=== PATIENT | female | born 1975 | race Two or more races ===

== ENCOUNTER 2017-05-13 13:13 | Emergency (ER) | payer MEDICAID, OTHER ==
[~2017-05-13] VITALS: Ht 157.5 cm; Wt 88.0 kg
[2017-05-13 13:46] VITALS: BP 139/94
[2017-05-13] MEDS ORDERED: PHENAZOPYRIDINE HCL 100 MG TAB PO ONE (14:15)
== END 2017-05-13 14:22 | disposition home or self-care (01) ==
LOC: ER 13:13
DX: N39.0 Urinary tract infection, site not specified (principal)

== ENCOUNTER 2017-11-01 18:39 | Emergency (ER) | payer MEDICAID ==
[~2017-11-01] VITALS: Ht 157.5 cm; Wt 90.3 kg
[2017-11-01 20:05] VITALS: BP 122/84
[2017-11-02] MEDS ORDERED: methylPREDNISolone SOD SUCC 125 MG/2 ML VL IM ONE
== END 2017-11-02 00:05 | disposition home or self-care (01) ==
LOC: ER 18:39
DX: J03.90 Acute tonsillitis, unspecified (principal)
CPT/HCPCS: 71045; 96372; 99283; J2930

== ENCOUNTER 2021-05-15 12:48 | Emergency (ER) | payer MEDICAID, OTHER ==
[~2021-05-15] VITALS: Ht 157.5 cm; Wt 88.5 kg
[2021-05-15 13:30] LABS: Urine Bacteria FEW /hpf (None Seen); Urine Blood Negative /uL (Negative); Urine Mucus FEW (None Seen); Urine Specific Gravity 1.026 (1.001-1.035); Urine WBC 3 /hpf (0 - 5)
[2021-05-15 14:09] VITALS: BP 129/81
== END 2021-05-15 14:41 | disposition home or self-care (01) ==
LOC: ER 12:48
DX: N39.0 Urinary tract infection, site not specified (principal)
CPT/HCPCS: 81001

== ENCOUNTER 2021-10-10 10:22 | Emergency (ER) | payer OTHER ==
[~2021-10-10] VITALS: Ht 157.5 cm; Wt 88.5 kg
[2021-10-10 11:03] VITALS: BP 139/68
[2021-10-10] MEDS ORDERED: IBUP800T27 PO (11:10)
[2021-10-10] MEDS ORDERED: PRED20TA2 PO (11:10)
== END 2021-10-10 11:28 | disposition home or self-care (01) ==
LOC: ER 10:22
DX: G56.02 Carpal tunnel syndrome, left upper limb (principal); Z79.1 Long term (current) use of non-steroidal anti-inflammatories (NSAID); Z79.899 Other long term (current) drug therapy

== ENCOUNTER 2023-08-01 15:29 | Emergency (ER) | payer MEDICAID ==
[~2023-08-01] VITALS: Ht 157.5 cm; Wt 93.8 kg
[~2023-08-01 15:29] MED LIST: IBUP-1456 PO; PRED20TA2 PO
[2023-08-01 15:46] VITALS: BP 123/84; PULSE 108; RESP 18; O2SAT 97
== END 2023-08-01 21:08 | disposition left against medical advice (07) ==
LOC: ER 15:29
DX: J02.9 Acute pharyngitis, unspecified (principal); Z53.21 Procedure and treatment not carried out due to patient leaving prior to being seen by health care provider

== ENCOUNTER 2023-08-07 10:18 | Emergency (ER) | payer MEDICAID ==
[~2023-08-07] VITALS: Ht 157.5 cm; Wt 92.9 kg
[2023-08-07] MEDS ORDERED: LIDOCAINE 1% HCL (LOCAL ANESTH.) INJ 20ML MDV IJ ONE (12:45)
[2023-08-07] MEDS ORDERED: KETOROLAC TROMETH 30 MG/ML 1ML VIAL IV ONE (13:15)
[2023-08-07] MEDS ORDERED: methylPREDNISolone SOD SUCC 125 MG/2 ML VL IV ONE (13:15)
[2023-08-07] MEDS ORDERED: methylPREDNISolone SOD SUCC 125 MG/2 ML VL ONE (13:15)
[2023-08-07] MEDS ORDERED: SODIUM CHLORIDE 0.9% 1,000 ML IV ONE (13:15)
[2023-08-07] MEDS ORDERED: cefTRIAXone 1GM/50ML D5W 50 ML IV ONE ×3 (13:15)
[2023-08-07] MEDS ORDERED: KETOROLAC TROMETH 30 MG/ML 1ML VIAL ONE (13:15)
[2023-08-07] MEDS ORDERED: CLIN300C70 PO (13:56)
[2023-08-07] MEDS ORDERED: LIDO2SOL26 MT ×2 (13:56)
[2023-08-07] MEDS ORDERED: IBUP-1456 PO (14:24)
[2023-08-07 14:26] VITALS: BP 124/95; PULSE 80; RESP 16; TEMP 98; O2SAT 98
== END 2023-08-07 14:28 | disposition home or self-care (01) ==
LOC: ER 10:18
DX: J36 Peritonsillar abscess (principal); Z79.899 Other long term (current) drug therapy
CPT/HCPCS: 42700; 96365; 96375; 99284; J0696; J1885; J2930

== ENCOUNTER 2023-09-13 13:36 | Emergency (ER) | payer MEDICAID ==
[~2023-09-13] VITALS: Ht 160 cm; Wt 94.0 kg
[~2023-09-13 13:36] MED LIST changes: +CLIN300C70 PO
[2023-09-13 14:53] VITALS: BP 119/86; PULSE 107; RESP 18; TEMP 97.4; O2SAT 96
[2023-09-13] MEDS ORDERED: KETOROLAC TROMETH 30 MG/ML 1ML VIAL IM ONE (15:30)
== END 2023-09-13 16:16 | disposition home or self-care (01) ==
LOC: ER 13:36
DX: M77.12 Lateral epicondylitis, left elbow (principal); Z79.899 Other long term (current) drug therapy
CPT/HCPCS: 73070; 96372; 99283; J1885

== ENCOUNTER 2024-02-15 16:24 | Emergency (ER) | payer MEDICAID ==
[~2024-02-15] VITALS: Ht 162.6 cm; Wt 93.4 kg
[~2024-02-15 16:24] MED LIST changes: +CLIN1CAP70 PO; -CLIN300C70 PO
[2024-02-15 16:40] VITALS: BP 145/96; PULSE 88; RESP 20; O2SAT 96
[2024-02-15] MEDS ORDERED: AMOX875T4 PO (20:18)
[2024-02-15] MEDS ORDERED: ACET500T58 PO (20:18)
== END 2024-02-15 20:29 | disposition home or self-care (01) ==
LOC: ER 16:24
DX: J03.90 Acute tonsillitis, unspecified (principal); H66.92 Otitis media, unspecified, left ear; F17.210 Nicotine dependence, cigarettes, uncomplicated; Z79.1 Long term (current) use of non-steroidal anti-inflammatories (NSAID); Z79.52 Long term (current) use of systemic steroids; Z90.49 Acquired absence of other specified parts of digestive tract

== ENCOUNTER 2024-04-13 14:50 | Emergency (ER) | payer MEDICAID ==
[~2024-04-13] VITALS: Ht 157.5 cm; Wt 95.0 kg
[~2024-04-13 14:50] MED LIST changes: +ACET500T58 PO; +AMOX875T4 PO
[2024-04-13 16:43] VITALS: BP 135/88; PULSE 90; RESP 18; TEMP 99.1; O2SAT 97
[2024-04-13] MEDS: cefTRIAXone SOD 1,000 MG VL IM ONE (17:04)
[2024-04-13] MEDS: methylPREDNISolone SOD SUCC 125 MG/2 ML VL IM ONE (17:05)
[2024-04-13] MEDS ORDERED: CLIN1CAP70 PO (17:23)
== END 2024-04-13 17:27 | disposition home or self-care (01) ==
LOC: ER 14:50
DX: J03.90 Acute tonsillitis, unspecified (principal); H66.92 Otitis media, unspecified, left ear; F17.210 Nicotine dependence, cigarettes, uncomplicated; Z98.890 Other specified postprocedural states; Z79.899 Other long term (current) drug therapy
CPT/HCPCS: 96372; 99284; J0696; J2919

== ENCOUNTER 2024-04-15 06:50 | Inpatient (IN) | payer MEDICAID ==
[~2024-04-15] VITALS: Ht 157.5 cm; Wt 96.7 kg
[2024-04-15 07:38] LABS: Basophils # (auto) 0.1 10 ^3/uL (0-0.2); Basophils % (auto) 0.4 % (0.0-2.0); Eosinophils # (auto) 0.1 10 ^3/uL (0-0.8); Eosinophils % (auto) 0.8 % (0.0-7.0); Hematocrit 40.9 % (36.0-46.0); Hemoglobin 13.6 g/dL (12.2-16.2); Lymphocytes % (auto) 13.9 % (10.0-50.0); Mean Corpuscular Hemoglobin 29.6 pg (28.0-32.0); Mean Corpuscular Hgb Conc. 33.2 g/dL (32.0-36.0); Mean Corpuscular Volume 89.1 fL (80.0-100.0); Monocytes # (auto) 0.9 10 ^3/uL (0-1.3); Monocytes % (auto) 6.5 % (0.0-12.0); Neutrophils # (auto) 11.4 10 ^3/uL (1.6-8.6); Neutrophils % (auto) 78.4 % (37.0-80.0); Nucleated Red Blood Cells % 0.1 %; Platelet Count (auto) 422 10^3/uL (140-450); Red Blood Cells 4.59 10^6/uL (4.0-5.20); Red Cell Distribution Width 15.6 % (11.8-14.3); White Blood Cell 14.5 10^3/uL (4.4-10.8)
[2024-04-15 08:16] VITALS: PULSE 81; RESP 17; O2SAT 97
[2024-04-15 08:36] LABS: Urine Bacteria FEW /hpf (None Seen); Urine Blood Negative /uL (Negative); Urine Budding Yeast OCCASIONAL /hpf (None Seen); Urine Clarity Turbid (Clear); Urine Color Yellow (Yellow); Urine Mucus FEW (None Seen); Urine Protein, UAD 1+ (Negative); Urine Specific Gravity 1.046 (1.001-1.035); Urine Urobilinogen Normal (Negative); Urine WBC 5 /hpf (0 - 5)
[2024-04-15 08:57] LABS: Chloride 105 mmol/L (98-107); Potassium 3.8 mmol/L (3.5-5.1); Sodium 137 mmol/L (136-145)
[2024-04-15 08:58] LABS: Anion Gap 6 (5-15); Carbon Dioxide 26 mmol/L (20-30)
[2024-04-15 08:59] LABS: Calcium 8.5 mg/dL (8.7-10.4)
[2024-04-15 09:03] LABS: Blood Urea Nitrogen 10 mg/dL (9-23); Glucose 115 mg/dL (74-106)
[2024-04-15 09:04] LABS: Lipase 34 U/L (12-53)
[2024-04-15] MEDS: SODIUM CHLORIDE 0.9% 1,000 ML IV ONE ×2 (09:06→11:34)
[2024-04-15 09:07] LABS: COVID19 ANTIGEN SOFIA FIA POSITIVE (NEGATIVE)
[2024-04-15] MEDS: cefTRIAXone 1GM/50ML D5W 50 ML IV ONE (09:08)
[2024-04-15 09:26] LABS: BUN/Creatinine Ratio 14.7 (10.0-20.0)
[2024-04-15] MEDS ORDERED: ACETAMINOPHEN 325 MG TAB PO PRN (12:00)
[2024-04-15] MEDS ORDERED: ONDANSETRON HCL 4 MG/2 ML VIAL IV PRN (12:00)
[2024-04-15] MEDS ORDERED: DOCUSATE SOD 100 MG CAP PO PRN (12:00)
[2024-04-15] MEDS: HYDROcodone-ACET 5/325MG TAB PO PRN (12:39)
[2024-04-15] MEDS: SODIUM CHLOR 0.9% PF (SALINE LOCK) 10ML VIAL/SYR IV SCH (14:10)
[2024-04-15 17:13] VITALS: BP 131/81; PULSE 106; RESP 19; TEMP 98.8; O2SAT 97
[2024-04-15 17:28] VITALS: BP 131/81; PULSE 106; RESP 19; TEMP 98.8; O2SAT 97
[2024-04-15] MEDS ORDERED: CLIN1CAP70 PO (17:51)
[2024-04-15] MEDS ORDERED: IBUP-1455 PO (17:51)
[2024-04-15] MEDS: HYDROmorphone HCL 2 MG/ML VL/or syr IV PRN (17:57)
[2024-04-15] MEDS ORDERED: guaiFENesin-DM 100/10mg/5ml SYR PO PRN (18:00)
[2024-04-15] MEDS ORDERED: FLUTICASONE PROP NASAL SPR 0.05 % (50MCG) 16GM EACHNOSTRI PRN (20:15)
[2024-04-15] MEDS: IBUPROFEN 800 MG TAB PO ONE (20:27)
[2024-04-15 21:00] VITALS: BP 117/70; PULSE 101; RESP 19; TEMP 98.3; O2SAT 97
[2024-04-16 01:00] VITALS: BP 128/90; PULSE 92; RESP 20; TEMP 98.3; O2SAT 98
[2024-04-16 03:37] LABS: Urine Bacteria None Seen /hpf (None Seen)
[2024-04-16 03:43] LABS: Urine Blood Negative /uL (Negative); Urine Clarity Clear (Clear); Urine Color Colorless (Yellow); Urine Protein, UAD Negative (Negative); Urine Urobilinogen Normal (Negative); Urine WBC 2 /hpf (0 - 5)
[2024-04-16 05:00] VITALS: BP 111/70; PULSE 86; RESP 16; TEMP 98.6; O2SAT 95
[2024-04-16 05:45] LABS: Basophils # (auto) 0.1 10 ^3/uL (0-0.2); Basophils % (auto) 0.5 % (0.0-2.0); Eosinophils # (auto) 0.1 10 ^3/uL (0-0.8); Eosinophils % (auto) 0.6 % (0.0-7.0); Hemoglobin 13.7 g/dL (12.2-16.2); Lymphocytes # (auto) 2.4 10 ^3/uL (0.4-5.4); Lymphocytes % (auto) 19.4 % (10.0-50.0); Mean Corpuscular Hemoglobin 29.4 pg (28.0-32.0); Mean Corpuscular Hgb Conc. 33.4 g/dL (32.0-36.0); Mean Corpuscular Volume 88.1 fL (80.0-100.0); Monocytes # (auto) 1.3 10 ^3/uL (0-1.3); Monocytes % (auto) 10.3 % (0.0-12.0); Neutrophils # (auto) 8.5 10 ^3/uL (1.6-8.6); Neutrophils % (auto) 69.2 % (37.0-80.0); Nucleated Red Blood Cells % 0.1 %; Platelet Count (auto) 438 10^3/uL (140-450); Red Blood Cells 4.65 10^6/uL (4.0-5.20); Red Cell Distribution Width 15.6 % (11.8-14.3); White Blood Cell 12.3 10^3/uL (4.4-10.8)
[2024-04-16 06:09] LABS: Alanine Aminotransferase 24 U/L (7-40); Albumin 4.3 g/dL (3.2-4.8); Alkaline Phosphatase 134 U/L (46-116); Anion Gap 6 (5-15); Aspartate Aminotransferase 25 U/L (13-40); BUN/Creatinine Ratio 9.8 (10.0-20.0); Bilirubin, Total 0.3 mg/dL (0.2-1.0); Blood Urea Nitrogen 6 mg/dL (9-23); Calcium 8.8 mg/dL (8.7-10.4); Carbon Dioxide 27 mmol/L (20-30); Chloride 102 mmol/L (98-107); Glucose 108 mg/dL (74-106); Potassium 4.1 mmol/L (3.5-5.1); Sodium 135 mmol/L (136-145); Total Protein 7.2 g/dL (5.7-8.2)
[2024-04-16 08:00] VITALS: PULSE 86; RESP 24; O2SAT 98
[2024-04-16] MEDS: cefTRIAXone 1GM/50ML D5W 50 ML IV SCH (08:53)
[2024-04-16] MEDS: ENOXAPARIN SOD 40 MG/0.4 ML SYRINGE SC SCH (08:53)
[2024-04-16 09:00] VITALS: BP 123/87; PULSE 86; RESP 24; TEMP 98.2; O2SAT 98
[2024-04-16] MEDS ORDERED: POLYETHYLENE GLYCOL 17 GM PWDR PO PRN (11:00)
[2024-04-16] MEDS ORDERED: IBUPROFEN 400 MG TAB PO PRN ×2 (11:00→12:30)
[2024-04-16] MEDS: IBUPROFEN 400 MG TAB PO PRN (11:54)
[2024-04-16] MEDS: THROAT LOZENGES(CEPASTAT) MT PRN (11:54)
[2024-04-16] MEDS: LACTULOSE 20Gm/30ML SOLN PO STA (11:54)
[2024-04-16] MEDS: FLUTICASONE PROP NASAL SPR 0.05 % (50MCG) 16GM EACHNOSTRI ONE (12:15)
[2024-04-16 13:00] VITALS: BP 134/89; PULSE 109; RESP 24; TEMP 98.9; O2SAT 97
[2024-04-16] MEDS ORDERED: CHOL1CAP47 PO (14:53)
[2024-04-16] MEDS ORDERED: AZITTAB PO (14:53)
[2024-04-16] MEDS ORDERED: ASCO500T11 PO (14:53)
[2024-04-16] MEDS ORDERED: ZINC220C10 PO (14:53)
[2024-04-16 15:26] VITALS: BP 134/89; PULSE 109; RESP 24; TEMP 98.8; O2SAT 97
[2024-04-16] MEDS ORDERED: AMOXICILLIN/CLAVUL 875 MG TAB PO SCH (22:00)
[2024-04-17] MEDS ORDERED: LACTULOSE 20Gm/30ML SOLN PO PRN (10:00)
== END 2024-04-16 16:40 | disposition home or self-care (01) | DRG 254 ==
LOC: ER 06:50 → EAST 12:03 → OVERFLOW 12:03 → EAST 17:06
PROVIDERS: ADMIT Internal Medicine; ATTEND Internal Medicine
DX: K59.00 Constipation, unspecified (principal); U07.1 COVID-19; D72.829 Elevated white blood cell count, unspecified; J03.90 Acute tonsillitis, unspecified; J35.01 Chronic tonsillitis; E66.9 Obesity, unspecified; F17.210 Nicotine dependence, cigarettes, uncomplicated; Z79.1 Long term (current) use of non-steroidal anti-inflammatories (NSAID); Z79.899 Other long term (current) drug therapy; Z90.49 Acquired absence of other specified parts of digestive tract; Z68.39 Body mass index [BMI] 39.0-39.9, adult
CPT/HCPCS: 36415; 71045; 74176; 80048; 80053; 81001; 83690; 85025; 87086; 87426; 96365; G0378

== ENCOUNTER 2024-10-17 13:51 | Emergency (ER) | payer MEDICAID ==
[~2024-10-17] VITALS: Ht 154.9 cm; Wt 91.9 kg
[~2024-10-17 13:51] MED LIST changes: -ACET500T58 PO; -AMOX875T4 PO; +ASCO500T11 PO; +AZITTAB PO; +CHOL1CAP47 PO; -CLIN1CAP70 PO; +IBUP-1455 PO; -IBUP-1456 PO; -PRED20TA2 PO; +ZINC220C10 PO
--- NOTE | 2024-10-17 14:20 | ECG ---
[facility] Test Date: 2024-10-17 Test Time: 14:15:01 Pat Name: LYNNE DANIELS Department: ER Room: Gender: F Unit [employer] Manager: YU : 1975 Requested By: EMERGENCY EMERGENCY Order Number: [id number] Reading MD: Measurements Intervals [place] Rate: 82 P: 64 AL: 122 QRS: 79 QRSD: 94 T: 46 QT: 378 QTc: 442 Interpretive Statements Sinus rhythm Consider right atrial enlargement Minimal ST depression, diffuse leads Please click the below link to view image of tracing.
[2024-10-17 15:16] LABS: Basophils # (auto) 0.1 10 ^3/uL (0-0.2); Monocytes # (auto) 0.6 10 ^3/uL (0-1.3); White Blood Cell 9.6 10^3/uL (4.4-10.8)
--- NOTE | 2024-10-17 15:19 | ED.PDOC ---
SOB-HPI HPI Comments 49 year old female presents to the ED with a chief complaint of shortness of breath onset yesterday (10/16/2024). Patient states she was helping her son move, states it was possible she was exposed to "fiber glass." She was in bed when she began experiencing shortness of breath, with a burning sensation on her chest. Denies any PMHx as well as cough, congestion, headache, dizziness. No other symptoms or modifying factors present at this time. 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 Family History Family History: Unknown Social History Smoker: Cigarettes, Less Than 1 Pack/Day Alcohol: Denies ETOH Use Drugs: Denies Drug Use Lives In: Home Constitutional: denies: chills, diaphoresis, fatigue, fever, malaise, sweats, weakness, others EENTM: denies: blurred vision, double vision, ear bleeding, ear discharge, ear drainage, ear pain, ear ringing, eye pain, eye redness, hearing loss, mouth pain, mouth swelling, nasal discharge, nose bleeding, nose congestion, nose pain, photophobia, tearing, throat pain, throat swelling, voice changes, others Respiratory: reports: shortness of breath; denies: cough, hemoptysis, orthopnea, SOB at rest, SOB with excertion, stridor, wheezing, others Cardiovascular: reports: others (chest discomfort, burning sensaiton); denies: chest pain, dizzy spells, diaphoresis, Dyspnea on exertion, edema, irregular heart beat, left arm pain, lightheadedness, palpitations, PND, syncope Gastrointestinal: denies: abdomen distended, abdominal pain, blood streaked bowels, constipated, diarrhea, dysphagia, difficulty swallowing, hematemesis, melena, nausea, poor appetite, poor fluid intake, rectal bleeding, rectal pain, vomiting, others Genitourinary: denies: abnormal vagina bleeding, burning, dyspareunia, dysuria, flank pain, frequency, hematuria, incontinence, pain, , vagina discharge, urgency, others Neurological: denies: dizziness, fainting, headache, left sided numbness, left sided weakness, numbness, paresthesia, pre-existing deficit, right sided numbness, right sided weakness, seizure, speech problems, tingling, tremors, weakness, others Musculoskeletal: denies: back pain, gout, joint pain, joint swelling, muscle pain, muscle stiffness, neck pain, others Integumetry: denies: bruises, change in color, change in hair/nails, dryness, laceration, lesions, lumps, rash, wounds, others Allergic/Immunocompromised: denies: Difficulty Healing, Frequent Infections, Hives, Itching, others Hematologic/Lymphatic: denies: anemia, blood clots, easy bleeding, easy bruising, swollen glands, others Endocrine: denies: excessive hunger, excessive sweating, excessive thirst, excessive urination, flushing, intolerance to cold, intolerance to heat, unexplained weight gain, unexplained weight loss, others Psychiatric: denies: anxiety, bipolar disorder, depression, hopeless, panic disorder, schizophrenia, sleepless, suicidal, others All Other Systems: Reviewed and Negative Physical Exam General Appearance: No Apparent Distress, Normal HEENT: Normal ENT Inspection, Pharynx Normal, TMs Normal Neck: Full Range of Motion, Non-Tender, Normal, Normal Inspection Respiratory: Chest Non-Tender, Lungs Clear, No Accessory Muscle Use, No Respiratory Distress, Normal Breath Sounds Cardiovascular: No Edema, No JVD, No Murmur, No Gallop, Normal Peripheral Pulses, Regular Rate/Rhythm Breast Exam: Deferred Gastrointestinal: No Organomegaly, Non Tender, No Pulsatile Mass, Normal Bowel Sounds, Soft Genitalia: Deferred Pelvic: Deferred Rectal: Deferred Extremities: No calf tenderness, Normal capillary refill, Normal inspection, Normal range of motion, Non-tender, No pedal edema Musculoskeletal : Apperance: Normal Neurologic: Alert, keel press operator II-XII nml as Tested, No Motor Deficits, Normal Affect, Normal Mood, No Sensory Deficits Cerebellar Function: Normal Reflexes: Normal Skin: Dry, Normal Color, Warm Lymphatic: No Adenopathy Was a procedure done? Was a procedure done?: No Differential Dx Differential Diagnosis: Asthma, CHF, Pneumonia, URI X-Ray, Labs, Meds, VS Vital Signs Date Time Temp Pulse Resp B/P (MAP) Pulse Ox O2 Delivery O2 Flow Rate FiO2 10/17/24 14:42 97.7 93 16 129/76 (93) 96 10/17/24 14:15 82 Lab Test 10/17/24 16:07 10/17/24 14:52 Range/Units Troponin I High Sensitivity < 3 L < 3 L </=34 ng/L White Blood Count 9.6 4.4-10.8 10^3/uL Red Blood Count 4.98 4.0-5.20 10^6/uL Hemoglobin 13.9 12.2-16.2 g/dL Hematocrit 42.3 36.0-46.0 % Mean Corpuscular Volume 85.0 80.0-100.0 fL Mean Corpuscular Hemoglobin 27.9 L 28.0-32.0 pg Mean Corpuscular Hemoglobin Concent 32.9 32.0-36.0 g/dL Red Cell Distribution Width 16.0 H 11.8-14.3 % Platelet Count 496 H 140-450 10^3/uL Mean Platelet Volume 7.2 6.9-10.8 fL Neutrophils (%) (Auto) 68.8 37.0-80.0 % Lymphocytes (%) (Auto) 22.0 10.0-50.0 % Monocytes (%) (Auto) 6.4 0.0-12.0 % Eosinophils (%) (Auto) 1.9 0.0-7.0 % Basophils (%) (Auto) 0.9 0.0-2.0 % Neutrophils # (Auto) 6.6 1.6-8.6 10 ^3/uL Lymphocytes # (Auto) 2.1 0.4-5.4 10 ^3/uL Monocytes # (Auto) 0.6 0-1.3 10 ^3/uL Eosinophils # (Auto) 0.2 0-0.8 10 ^3/uL Basophils # (Auto) 0.1 0-0.2 10 ^3/uL Nucleated Red Blood Cells 0.1 % Sodium Level 136 136-145 mmol/L Potassium Level 4.7 3.5-5.1 mmol/L Chloride Level 102 98-107 mmol/L Carbon Dioxide Level 28 20-31 mmol/L Anion Gap 6 5-15 Blood Urea Nitrogen 13 9-23 mg/dL Creatinine 0.71 0.550-1.02 mg/dL Glomerular Filtration Rate Calc 104 >90 mL/min BUN/Creatinine Ratio 18.3 10.0-20.0 Serum Glucose 104 74-106 mg/dL Calcium Level 9.8 8.7-10.4 mg/dL B-Type Natriuretic Peptide 32.02 0-100 pg/mL [place] [address] Ph: [phone] DIAGNOSTIC IMAGING Diagnostic Imaging Report : [id number] Signed PATIENT: LYNNE DANIELS ACCT: [id number] UNIT: [id number] : 1975 LOC: ER ROOM / BED: / AGE / SEX: 49 / F ADM STATUS: REG ER SERVICE 1431 ORDERING PHYSICIAN: HITESH BANKS MD PROCEDURE(s): CXR2 - CHEST TWO VIEWS ROUTINE REASON: sob ORDER NUMBER(s): [id number], ACCESSION NUMBER(s): [id number] CHEST RADIOGRAPH Indication: sob Technique: Single frontal view of the chest was obtained Comparison: 04/15/2024 FINDINGS: Lines and Tubes: None Lungs: No focal consolidation. Pleura: No effusion.No pneumothorax. Cardiomediastinal contours: Unremarkable Pulmonary vasculature: Within normal limits. Bones: No acute osseous abnormality. IMPRESSION: 1. No acute cardiopulmonary disease. HS:Y ATED BY: PEEWEE CODY MD DICTATED DATE/TIME: 10/17/241515 SIGNED BY: PEEWEE CODY MD SIGNED DATE/TIME: 10/17/241515 CC: Time of 1ST Reevaluation: 15:28 Reevaluation 1ST: Unchanged Patient Education/Counseling: Diagnosis, Treatment, Prognosis Family Education/Counseling: No Family Present Additional Information The following tests were ordered, and results were reviewed by me: EKG, BMP, CBC, TROP -x3, XY CHEST 2 VIEWS, BNP I reviewed and agreed with the following test results read by other providers: XY CHEST 2 VIEWS, I discussed treatment and results with medical personnel and: patient Departure 1 Departure Time of Disposition: 17:25 (Patient's workup is benign. Chest x-ray and labs are benign. We will discharge patient with outpatient follow up) Impression: Primary Impression: Shortness of breath Disposition: HOME / SELF CARE / HOMELESS Condition: Stable Additional Instructions: Your workup today was benign including negative labs and x-rays. You can take Tylenol or Motrin as needed for pain. You should follow up with your regular doctor within 1 week. You should stay well rested and well hydrated. If your symptoms worsen or you have any other concerns please return to the emergency room. Discharged With: Self Critical Care Note Critical Care Time?: No Stability Stability form required: No Heart Score Heart Score: Heart Score Response (Comments) Value History Slightly Suspicious 0 EKG Normal 0 Age <45 0 Risk Factors No known risk factors 0 Troponin Normal limit 0 Total 0 I personally scribed for HITESH BANKS MD ([email or web address]) on 10/17/24 at 15:19. Electronically submitted by Kimberly Carrasquillo ([email or web address]). I personally scribed for HITESH BANKS MD ([email or web address]) on 10/17/24 at 15:31. Electronically submitted by Kimberly Carrasquillo ([email or web address]). HITESH BANKS MD Oct 17, 2024 15:19
[2024-10-17 15:20] LABS: Basophils % (auto) 0.9 % (0.0-2.0); Eosinophils # (auto) 0.2 10 ^3/uL (0-0.8); Eosinophils % (auto) 1.9 % (0.0-7.0); Hematocrit 42.3 % (36.0-46.0); Hemoglobin 13.9 g/dL (12.2-16.2); Lymphocytes # (auto) 2.1 10 ^3/uL (0.4-5.4); Mean Corpuscular Hemoglobin 27.9 pg (28.0-32.0); Mean Corpuscular Hgb Conc. 32.9 g/dL (32.0-36.0); Monocytes % (auto) 6.4 % (0.0-12.0); Neutrophils # (auto) 6.6 10 ^3/uL (1.6-8.6); Neutrophils % (auto) 68.8 % (37.0-80.0); Nucleated Red Blood Cells % 0.1 %; Platelet Count (auto) 496 10^3/uL (140-450); Red Blood Cells 4.98 10^6/uL (4.0-5.20)
[2024-10-17 15:30] LABS: Chloride 102 mmol/L (98-107); Potassium 4.7 mmol/L (3.5-5.1); Sodium 136 mmol/L (136-145)
[2024-10-17 15:32] LABS: Anion Gap 6 (5-15); Calcium 9.8 mg/dL (8.7-10.4); Carbon Dioxide 28 mmol/L (20-31)
[2024-10-17 15:37] LABS: BUN/Creatinine Ratio 18.3 (10.0-20.0); Blood Urea Nitrogen 13 mg/dL (9-23); Glucose 104 mg/dL (74-106)
[2024-10-17 18:05] LABS: Urine Bacteria None Seen /hpf (None Seen)
[2024-10-17 18:10] VITALS: BP 121/65; PULSE 91; RESP 16; TEMP 98.5; O2SAT 97
[2024-10-17 18:49] LABS: Urine Blood Negative /uL (Negative); Urine Clarity Clear (Clear); Urine Color Light-Yellow (Yellow); Urine Protein, UAD Negative (Negative); Urine Specific Gravity 1.021 (1.001-1.035); Urine Squamous Epithelial Cell FEW /hpf (<5); Urine Urobilinogen Normal (Negative); Urine pH 7.5 (5.0-9.0)
[2024-10-18] MEDS ORDERED: OSEL75CA5 PO (19:00)
== END 2024-10-17 18:10 | disposition home or self-care (01) ==
LOC: ER 13:51
DX: R06.02 Shortness of breath (principal); F17.210 Nicotine dependence, cigarettes, uncomplicated; Z90.49 Acquired absence of other specified parts of digestive tract
CPT/HCPCS: 36415; 71046; 80048; 81001; 83880; 84484; 85025; 93005

== ENCOUNTER 2024-10-18 16:04 | Emergency (ER) | payer MEDICAID ==
[~2024-10-18] VITALS: Ht 154.9 cm; Wt 91.9 kg
--- NOTE | 2024-10-18 16:40 | ED.PDOC ---
SOB-HPI HPI Comments HPI: 49 year old female presents to the ED with chief complaint of flu-like symptoms. Patient reports that she has been experiencing a cough with associated fever of 102.9 yesterday, nasal congestion, and headache for the past 2 days. Patient relays that she was [facility] for the same symptoms, but did not receive any treatment or swabs. Patient states she has been taking Tylenol at home. Patient denies any N/V/D, abdominal pain, SOB, chest pain, dizziness, or chills. Initial Vital Signs: Temp : 97.4F BP: 111/76 HR: 113 RR: 18 SpO2: 98% Past Medical History: Denies Past Surgical History: Cholecystectomy Social History: Smokes cigarettes and vapes. Denies ETOH or drug use. Medications: No medications. Allergies: NKDA HPI: Poor Historian. Past Medical History: Past Surgical History: REVIEW OF SYSTEMS: CONSTITUTIONAL: Denies acute: diaphoresis, chills, HEAD: Denies acute: photophobia Eyes: Denies acute: Double vision, vision loss, eye pain, eye discharge. EARS: Denies acute: tinnitus, hearing loss, ear discharge, ear pain, THROAT: Denies acute: sore throat, swelling, difficulty swallowing , pain with swallowing, change in voice. NECK: Denies acute: neck pain, neck swelling, stiff neck. HEART: Denies acute : chest pain, palpitations, LUNGS: Denies acute: SOB, wheezing, hemoptysis ABDOMEN: Denies acute: abdominal pain, Nausea, Vomiting, diarrhea, melena , hematemesis, hematochezia SKIN: Denies acute: rash, redness, lesions, itchiness. EXTREMITIES: Denies acute: calf pain, numbness, tingling, weakness, denies pain in extremity. Denies acute: Low back pain. Neuro: Denies acute: focal neurological deficit, motor or sensory focal neurological deficit, tremors, seizure like activity, confusion, dizziness, change in mental status, loss of bowel or bladder function, cauda equina like symptoms. : Denies acute: dysuria, hematuria, flank pain, increase in urinary frequency. PSYCH: Denies acute: hallucination, suicidal ideation, homicidal ideation. FEMALE: Denies acute: abnormal vaginal bleeding, foul odor, unusual discharge. PHYSICAL EXAM: General: no acute distress, awake and alert. Head: normocephalic, atraumatic. Neck: supple, trachea is midline, no swelling. Throat: Normal phonation. Eyes:, no erythema, no purulent discharge, no proptosis, no icterus. Heart: regular tachycardic, no significant murmur appreciated. Lungs: no apparent respiratory distress, Able to speak in full sentences. No wheezing, no rhonchi, no crackles. No stridors Clear to auscultation bilaterally. Abdomen: non tender to palpation, non distended, soft, no guarding, no rebound, + bowel sounds. Neuro: Awake, Alert, oriented to name, self, situation, follows commands GCS=15. Speech is normal. Skin: no petechia, no purpura, no cyanosis, non-pale, not jaundice. Lower extremities: --no - Pitting edema no deformity, no focal swelling, no calf TTP. Makes eye contact. moves all four extremities. Face: no apparent facial droop. Ambulating in the ED independently. ED COURSE: Time Seen by MD: 16:37 Primary Care Provider: RAYSHAWN Reviewed notes: Medications, Allergies Information Source: Patient Mode of Arrival: Ambulatory Was a procedure done? Was a procedure done?: No Differential Dx Differential Diagnosis: Anxiety, Asthma, Bronchitis, Cardiogenic Shock, CHF, COPD, Dysrhythmia, Hypertension, Hyperventilation, Hyponatremia, Myocardial infarction, Panic Attack, Pneumonia, Pneumothorax, PSVT, Pulmonary Embolism, Respiratory Distress, Sinusitis, Allergic Rhinitis, Otitis Media, Peritonsillar Abscess, Peritonsillar Cellulitis, Pharyngitis, URI X-Ray, Labs, Meds, VS Vital Signs Date Time Temp Pulse Resp B/P (MAP) Pulse Ox O2 Delivery O2 Flow Rate FiO2 10/19/24 00:08 99.0 99.0 10/19/24 00:02 99.0 10/18/24 23:02 100.5 10/18/24 22:50 18 98 Room Air* 0 21 10/18/24 22:50 100.5 102 18 114/69 (84) 98 100.5 10/18/24 16:37 97.4 113 18 111/76 (88) 98 Lab Test 10/18/24 20:18 10/18/24 18:10 10/18/24 16:43 10/18/24 16:40 Range/Units Lactic Acid Level 1.7 2.1 *H 0.4-2.0 mmol/L Troponin I High Sensitivity < 3 L < 3 L < 3 L </=34 ng/L White Blood Count 8.4 4.4-10.8 10^3/uL Red Blood Count 5.01 4.0-5.20 10^6/uL Hemoglobin 14.0 12.2-16.2 g/dL Hematocrit 42.3 36.0-46.0 % Mean Corpuscular Volume 84.4 80.0-100.0 fL Mean Corpuscular Hemoglobin 28.0 28.0-32.0 pg Mean Corpuscular Hemoglobin Concent 33.1 32.0-36.0 g/dL Red Cell Distribution Width 16.2 H 11.8-14.3 % Platelet Count 425 140-450 10^3/uL Mean Platelet Volume 7.1 6.9-10.8 fL Neutrophils (%) (Auto) 83.9 H 37.0-80.0 % Lymphocytes (%) (Auto) 8.2 L 10.0-50.0 % Monocytes (%) (Auto) 7.0 0.0-12.0 % Eosinophils (%) (Auto) 0.3 0.0-7.0 % Basophils (%) (Auto) 0.6 0.0-2.0 % Neutrophils # (Auto) 7.1 1.6-8.6 10 ^3/uL Lymphocytes # (Auto) 0.7 0.4-5.4 10 ^3/uL Monocytes # (Auto) 0.6 0-1.3 10 ^3/uL Eosinophils # (Auto) 0 0-0.8 10 ^3/uL Basophils # (Auto) 0.1 0-0.2 10 ^3/uL Nucleated Red Blood Cells 0.1 % Sodium Level 133 L 136-145 mmol/L Potassium Level 4.1 3.5-5.1 mmol/L Chloride Level 99 98-107 mmol/L Carbon Dioxide Level 23 20-31 mmol/L Anion Gap 11 5-15 Blood Urea Nitrogen 11 9-23 mg/dL Creatinine 0.78 0.550-1.02 mg/dL Glomerular Filtration Rate Calc 93 >90 mL/min BUN/Creatinine Ratio 14.1 10.0-20.0 Serum Glucose 170 H 74-106 mg/dL Calcium Level 9.5 8.7-10.4 mg/dL Total Bilirubin 0.2 0.2-1.0 mg/dL Aspartate Amino Transferase (AST) 27 13-40 U/L Alanine Aminotransferase (ALT) 31 7-40 U/L Alkaline Phosphatase 150 H 46-116 U/L B-Type Natriuretic Peptide 23.26 0-100 pg/mL Total Protein 7.3 5.7-8.2 g/dL Albumin 4.7 3.2-4.8 g/dL Influenza Type A Antigen Positive Negative Influenza Type B Antigen Negative Negative SARS-CoV-2 Antigen (Rapid) Negative NEGATIVE Test 10/18/24 16:35 Range/Units Urine Color Yellow Yellow Urine Clarity Clear Clear Urine pH 7.5 5.0-9.0 Urine Specific [place] 1.024 1.001-1.035 Urine Protein Trace H Negative Urine Ketones Negative Negative Urine Blood Negative Negative /uL Urine Nitrite Negative Negative Urine Bilirubin Negative Negative Urine Urobilinogen Normal Negative mg/dL Urine Leukocyte Esterase Negative Negative /uL Urine RBC 2 0 - 4 /hpf Urine Microscopic WBC 3 0-5 /HPF Urine Squamous Epithelial Cells Few <5 /hpf Urine Bacteria None seen None Seen /hpf Urine Mucus Few None Seen Urine Glucose Normal Normal mg/dL Urine Opiates Screen Neg NEGATIVE Urine Fentanyl Screen Neg NEGATIVE Urine Barbiturates Screen Neg NEGATIVE Urine Phencyclidine Screen Neg NEGATIVE Urine Amphetamines Screen Neg NEGATIVE Urine Benzodiazepines Screen Neg NEGATIVE Urine Cocaine Screen Neg NEGATIVE Urine Cannabinoids Screen Neg NEGATIVE Current Medications Medications (Trade) Dose Ordered Sig/Zo Route Start Time Stop Time Status Last Admin Acetaminophen (Tylenol Tablet) 650 mg ONCE ONCE PO 10/18/24 22:55 10/18/24 22:57 DC 10/18/24 23:[address] [address] Ph: [phone] DIAGNOSTIC IMAGING Diagnostic Imaging Report : [id number] Signed PATIENT: LYNNE DANIELS ACCT: [id number] UNIT: [id number] : 1975 LOC: ER ROOM / BED: / AGE / SEX: 49 / F ADM STATUS: REG ER SERVICE 1631 ORDERING PHYSICIAN: JANA VILLANUEVA DO PROCEDURE(s): CXRP - CHEST PORTABLE REASON: cough fever ORDER NUMBER(s): [id number], ACCESSION NUMBER(s): [id number] CHEST RADIOGRAPH Indication: cough fever Technique: Single frontal view of the chest was obtained Comparison: XY CHEST PORTABLE on DOS: 04/15/24. Lung windows from prior abdominal CT of March 2024 FINDINGS: Lines and Tubes: None Lungs: No focal consolidation. Pleura: No effusion. No pneumothorax. Cardiomediastinal contours: Unremarkable Bones: No acute osseous abnormality. IMPRESSION: 1. No acute cardiopulmonary disease. ATED BY: JIMY ALEXANDER MD DICTATED DATE/TIME: 10/18/241807 SIGNED BY: JIMY ALEXANDRE MD SIGNED DATE/TIME: 10/18/241807 CC: Time of 1ST Reevaluation: 17:37 Reevaluation 1ST: Unchanged Time of 2ND Reevaluation: 01:49 Reevaluation 2ND: Improved Patient Education/Counseling: Diagnosis, Treatment Family Education/Counseling: No Family Present Comments Patient presented with the above HPI.--flu-like symptoms----workup was initiated. patient was found with the above mentioned diagnosis. the following medications were ordered: please refer to order lists of meds and tests obtained by myself Dr. Villanueva. Patient ED course and VS have been stabilized. Patient has been reassessed in the ED and remained in a stable condition. Pertinent incidental findings were discussed with the patient and/or family. Patient/family voices understanding and is agreeable with plan. Patient has been observed in the ED adequate length of time to insure improvement/stability. Escalation of care considered: Consideration of escalation to observation or admission Patient was DISCHARGED home in a stable condition. All the reports of any imaging studies that were ordered by myself were reviewed by myself. Departure 1 Departure Time of Disposition: 18:57 Impression: Primary Impression: Influenza A H1N1 infection Disposition: 01 HOME / SELF CARE / HOMELESS Condition: Stable Additional Instructions: Additional discharge instructions: You MUST follow-up with your primary care/family doctor in 1 to 2 days. If you are unable to see your primary care/family doctor, please return to our emergency room for re-assessment and re-evaluation in 1 to 2 days. Return to the emergency room here in our facility or to the nearest ER [facility] if your symptoms change or worsen. CONSULTATIONS: you MUST Follow-up for consultation as soon as possible with: -pulmonology in 1-2 days. Please call for appointment. You MUST call the consultants office yourself to make an appointment. You may need to arrange that through your insurance and/or your primary/family doctor. If you are unable to see the business info consultant in 1 to 2 days, you must return to our emergency room (or any other ER of your choice) for re-assessment and re- evaluation. Adequate fluid hydration. Exercise good hygiene. Wear a mask at all times. You are contagious. e-Prescriptions Oseltamivir Phosphate (Tamiflu) 75 Mg Cap 1 CAP PO BID, #10 CAP Prov: JANA VILLANUEVA DO 10/18/24 Discharged With: Self Critical Care Note Critical Care Time?: No I personally scribed for JANA VILLANUEVA DO ([email or web address]) on 10/18/24 at 16:40. Electronically submitted by Jericho Yao ([email or web address]). I personally scribed for JANA VILLANUEVA DO ([email or web address]) on 10/18/24 at 20:27. Electronically submitted by Haritha Mendes ([email or web address]). JANA VILLANUEVA DO Oct 18, 2024 16:40
[2024-10-18 17:01] LABS: Basophils # (auto) 0.1 10 ^3/uL (0-0.2); Basophils % (auto) 0.6 % (0.0-2.0); Eosinophils # (auto) 0 10 ^3/uL (0-0.8); Eosinophils % (auto) 0.3 % (0.0-7.0); Hematocrit 42.3 % (36.0-46.0); Lymphocytes # (auto) 0.7 10 ^3/uL (0.4-5.4); Lymphocytes % (auto) 8.2 % (10.0-50.0); Mean Corpuscular Hgb Conc. 33.1 g/dL (32.0-36.0); Mean Corpuscular Volume 84.4 fL (80.0-100.0); Monocytes # (auto) 0.6 10 ^3/uL (0-1.3); Neutrophils # (auto) 7.1 10 ^3/uL (1.6-8.6); Neutrophils % (auto) 83.9 % (37.0-80.0); Nucleated Red Blood Cells % 0.1 %; Platelet Count (auto) 425 10^3/uL (140-450); Red Blood Cells 5.01 10^6/uL (4.0-5.20); Red Cell Distribution Width 16.2 % (11.8-14.3); White Blood Cell 8.4 10^3/uL (4.4-10.8)
[2024-10-18 17:04] LABS: Urine Bacteria None Seen /hpf (None Seen)
[2024-10-18 17:20] LABS: Alanine Aminotransferase 31 U/L (7-40); Albumin 4.7 g/dL (3.2-4.8); Anion Gap 11 (5-15); Aspartate Aminotransferase 27 U/L (13-40); BUN/Creatinine Ratio 14.1 (10.0-20.0); Blood Urea Nitrogen 11 mg/dL (9-23); Calcium 9.5 mg/dL (8.7-10.4); Carbon Dioxide 23 mmol/L (20-31); Chloride 99 mmol/L (98-107); Potassium 4.1 mmol/L (3.5-5.1); Total Protein 7.3 g/dL (5.7-8.2)
[2024-10-18 17:21] LABS: Alkaline Phosphatase 150 U/L (46-116); Bilirubin, Total 0.2 mg/dL (0.2-1.0); Glucose 170 mg/dL (74-106); Sodium 133 mmol/L (136-145)
[2024-10-18 17:23] LABS: Urine Blood Negative /uL (Negative); Urine Clarity Clear (Clear); Urine Color Yellow (Yellow); Urine Mucus FEW (None Seen); Urine Protein, UAD TRACE (Negative); Urine Specific Gravity 1.024 (1.001-1.035); Urine Squamous Epithelial Cell FEW /hpf (<5); Urine Urobilinogen Normal (Negative); Urine WBC 3 /HPF (0-5); Urine pH 7.5 (5.0-9.0)
[2024-10-18 17:25] LABS: Lactic Acid w/Reflex 2.1 mmol/L (0.4-2.0)
[2024-10-18 17:31] LABS: Amphetamine Screen, Urine Neg (NEGATIVE)
[2024-10-18 17:32] LABS: Phencyclidine Screen, Urine Neg (NEGATIVE)
[2024-10-18 17:34] LABS: Barbiturate Scree,Urine Neg (NEGATIVE); Benzodiazephine Screen, Urine Neg (NEGATIVE); Cannabinoid Screen, Urine Neg (NEGATIVE); Cocaine Screen, Urine Neg (NEGATIVE); Opiate Scree,Urine Neg (NEGATIVE)
[2024-10-18 17:47] LABS: Rapid Influenza A Positive (Negative); Rapid Influenza B Negative (Negative)
[2024-10-18 17:48] LABS: COVID19 ANTIGEN SOFIA FIA NEGATIVE (NEGATIVE)
--- NOTE | 2024-10-18 18:11 | DVH ---
CHEST RADIOGRAPH Indication: cough fever Technique: Single frontal view of the chest was obtained Comparison: XY CHEST PORTABLE on DOS: 04/15/24. Lung windows from prior abdominal CT of March 2024 FINDINGS: Lines and Tubes: None Lungs: No focal consolidation. Pleura: No effusion. No pneumothorax. Cardiomediastinal contours: Unremarkable Bones: No acute osseous abnormality. IMPRESSION: 1. No acute cardiopulmonary disease.
[2024-10-18] MEDS ORDERED: OSEL75CA5 PO (19:00)
[2024-10-18 22:50] VITALS: BP 114/69; PULSE 102; RESP 18; O2SAT 98
[2024-10-18] MEDS: ACETAMINOPHEN 325 MG TAB PO ONE (23:02)
[2024-10-19 00:08] VITALS: TEMP 99
== END 2024-10-19 00:14 | disposition home or self-care (01) ==
LOC: ER 16:04
DX: J10.1 Influenza due to other identified influenza virus with other respiratory manifestations (principal); F17.210 Nicotine dependence, cigarettes, uncomplicated; Z90.49 Acquired absence of other specified parts of digestive tract; Z20.822 Contact with and (suspected) exposure to COVID-19; Z79.899 Other long term (current) drug therapy
CPT/HCPCS: 36415; 71045; 80053; 80307; 81001; 83605; 83880; 84484; 85025; 87426; 87804

== ENCOUNTER 2024-12-10 19:24 | Emergency (ER) | payer MEDICAID ==
[~2024-12-10] VITALS: Ht 154.9 cm; Wt 91.6 kg
[~2024-12-10 19:24] MED LIST changes: +OSEL75CA5 PO
--- NOTE | 2024-12-10 20:37 | ED.PDOC ---
History of Present Illness HPI Comments This is a 49-year-old female who comes in with chief complaint of possible reaction to an injection to the left buttocks area. The patient states that she is currently receiving Bicillin for syphilis as well as she is currently taking other medication for her BC. The patient was currently undergoing the series of Bicillin and was in the unable to locate a nurse to give her the injection so she self injected two days ago. The patient was now complaining of some tenderness to the left buttocks area as well as a firmness that she is concerned about. She denies any fever or chills. The patient denies any nausea, vomiting or diarrhea. She was able to ambulate into the emergency department's without any difficulty. Time Seen by MD: 19:57 Primary Care Provider: RAYSHAWN Peña Notes: Nurses Notes, Medications, Allergies (No allergies to medications) Allergies: Coded Allergies: NO KNOWN ALLERGIES (Unverified , 05/13/17) Home Meds Active Scripts Oseltamivir Phosphate (Tamiflu) 75 Mg Cap, 1 CAP PO BID, #10 CAP Prov:JANA VILLANUEVA DO 10/18/24 Zinc Sulfate (Zinc) 220 Mg Cap, 220 MG PO DAILY, #15 CAP Prov:YOANDY SOLIZ MD 04/16/24 Cholecalciferol (Vitamin D3 Super Strength) 2,000 Unit Cap, 2000 UNIT PO DAILY, #15 CAP Prov:YOANDY SOLIZ MD 04/16/24 Ascorbic Acid (VITAMIN C TABLET) 500 Mg Tb, 1 TAB PO DAILY, #30 TAB Prov:YOANDY SOLIZ MD 04/16/24 Azithromycin (Zithromax Z-Willie) 250 Mg Tab, 250 MG PO DAILY, #6 TAB Prov:YOANDY SOLIZ MD 04/16/24 Reported Medications Ibuprofen Micronized (Ibuprofen) 800 Mg Tab, 800 MG PO TID, TAB 04/15/24 Information Source: Patient Mode of Arrival: Ambulatory Severity: Mild Timing: Days Duration: Since onset Prehospital treatment: None Associated signs and symptoms Left buttock swelling Past Medical History PAST MEDICAL HISTORY: Denies Surgical History: Cholecystectomy 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 Family History Family History: Unknown Social History Smoker: Cigarettes, Less Than 1 Pack/Day Alcohol: Denies ETOH Use Drugs: Methamphetamine Lives In: Home Constitutional: denies: chills, diaphoresis, fatigue, fever, malaise, sweats, weakness, others EENTM: denies: blurred vision, double vision, ear bleeding, ear discharge, ear drainage, ear pain, ear ringing, eye pain, eye redness, hearing loss, mouth pain, mouth swelling, nasal discharge, nose bleeding, nose congestion, nose pain, photophobia, tearing, throat pain, throat swelling, voice changes, others Respiratory: denies: cough, hemoptysis, orthopnea, SOB at rest, shortness of breath, SOB with excertion, stridor, wheezing, others Cardiovascular: denies: chest pain, dizzy spells, diaphoresis, Dyspnea on exertion, edema, irregular heart beat, left arm pain, lightheadedness, p alpitations, PND, syncope, others Gastrointestinal: denies: abdomen distended, abdominal pain, blood streaked bowels, constipated, diarrhea, dysphagia, difficulty swallowing, hematemesis, melena, nausea, poor appetite, poor fluid intake, rectal bleeding, rectal pain, vomiting, others Genitourinary: denies: abnormal vagina bleeding, burning, dyspareunia, dysuria, flank pain, frequency, hematuria, incontinence, pain, , vagina discharge, urgency, others Neurological: denies: dizziness, fainting, headache, left sided numbness, left sided weakness, numbness, paresthesia, pre-existing deficit, right sided numbness, right sided weakness, seizure, speech problems, tingling, tremors, weakness, others Musculoskeletal: denies: back pain, gout, joint pain, joint swelling, muscle pain, muscle stiffness, neck pain, others Integumetry: reports: others (Buttocks swelling and tenderness); denies: bruises, change in color, change in hair/nails, dryness, laceration, lesions, lumps, rash, wounds Allergic/Immunocompromised: denies: Difficulty Healing, Frequent Infections, Hives, Itching, others Hematologic/Lymphatic: denies: anemia, blood clots, easy bleeding, easy bruising, swollen glands, others Endocrine: denies: excessive hunger, excessive sweating, excessive thirst, excessive urination, flushing, intolerance to cold, intolerance to heat, unexplained weight gain, unexplained weight loss, others Psychiatric: denies: anxiety, bipolar disorder, depression, hopeless, panic disorder, schizophrenia, sleepless, suicidal, others Physical Exam General Appearance: No Apparent Distress HEENT: Normal ENT Inspection, Pharynx Normal, TMs Normal Neck: Full Range of Motion, Non-Tender, Normal, Normal Inspection Respiratory: Chest Non-Tender, Lungs Clear, No Accessory Muscle Use, No Respiratory Distress, Normal Breath Sounds Cardiovascular: No Edema, No JVD, No Murmur, No Gallop, Normal Peripheral Pulses, Regular Rate/Rhythm Breast Exam: Deferred Gastrointestinal: No Organomegaly, Non Tender, No Pulsatile Mass, Normal Bowel Sounds, Soft Genitalia: Deferred Pelvic: Deferred Rectal: Deferred Extremities: No calf tenderness, Normal capillary refill, Normal inspection, Normal range of motion, Non-tender, No pedal edema Musculoskeletal : Apperance: Normal Neurologic: Alert, camera machinist II-XII nml as Tested, No Motor Deficits, Normal Affect, Normal Mood, No Sensory Deficits Cerebellar Function: Normal Reflexes: Normal Skin: Dry, Normal Color, Warm, Other (Firmness to the left buttocks region but no sign of any redness or fluctuance) Lymphatic: No Adenopathy Was a procedure done? Was a procedure done?: No Differential Dx Considerations may include: Generalized weakness, abscess, cellulitis Time of 1ST Reevaluation: 20:36 Reevaluation 1ST: Unchanged Patient Education/Counseling: Diagnosis, Treatment, Prognosis, Need For Follow Up Family Education/Counseling: No Family Present Departure 1 Departure Time of Disposition: 20:36 Impression: Primary Impression: Medication reaction Qualified Codes: T50.905A - Adverse effect of unspecified drugs, medicaments and biological substances, initial encounter Disposition: HOME / SELF CARE / HOMELESS Condition: Fair Discharged With: Self Critical Care Note Critical Care Time?: No Stability Stability form required: No Heart Score Heart Score: Heart Score Response (Comments) Value History N/A 0 EKG N/A 0 Age N/A 0 Risk Factors N/A 0 Troponin N/A 0 Total 0 HELEN BAUER MD Dec 10, 2024 20:37
[2024-12-10 21:13] VITALS: BP 117/84; PULSE 104; RESP 19; TEMP 98.9; O2SAT 96
== END 2024-12-10 21:13 | disposition home or self-care (01) ==
LOC: ER 19:28
DX: R22.43 Localized swelling, mass and lump, lower limb, bilateral (principal); T36.0X5A Adverse effect of penicillins, initial encounter; F17.210 Nicotine dependence, cigarettes, uncomplicated; F15.90 Other stimulant use, unspecified, uncomplicated; Z79.1 Long term (current) use of non-steroidal anti-inflammatories (NSAID); Z90.49 Acquired absence of other specified parts of digestive tract; Z79.899 Other long term (current) drug therapy; Y92.89 Other specified places as the place of occurrence of the external cause

== ENCOUNTER 2025-05-09 18:18 | Emergency (ER) | payer MEDICAID ==
[~2025-05-09] VITALS: Ht 154.9 cm; Wt 89.3 kg
--- NOTE | 2025-05-09 18:42 | ECG ---
[facility] Test Date: 2025-05-09 Test Time: 18:32:20 Pat Name: LYNNE DANIELS Department: [facility] ED Patient ID: [id number] Room: Gender: F Craniologist: JOSTIN : 1975 Requested By: JONAH SALINAS Order Number: [id number] Reading MD: Ronaldo Hurley Measurements Intervals [place] Rate: 90 P: 62 LA: 139 QRS: 65 QRSD: 94 T: 53 QT: 345 QTc: 422 Interpretive Statements Sinus rhythm Low voltage, precordial leads Minimal ST depression, inferior leads Electronically Signed On 05-10-2025 16:05:39 PDT by Ronaldo Hurley Please click the below link to view image of tracing.
--- NOTE | 2025-05-09 18:48 | ED.PDOC ---
GI ASSESSMENT HPI Comments This is a 49 year-old female, with a Hx of DM and a SHx of cholecystectomy, who presents to the ED with a chief complaint of RUQ abdominal pain with associated mild chest pain, N, dark stool, numbness sensation of the upper and lower extremities, and diaphoresis as of yesterday. Patient reports chest pain as intermittent, exacerbated with movement, with no associated relieving factors. Patient states she is currently on Ozempic for DM and weight loss. Patient has no further complaints at this time and otherwise denies recent exposure to illness, ingestion of ETOH, SOB, emesis, hematemesis, diarrhea, dysuria, or hematuria. REVIEW OF SYSTEMS: General: Positive diaphoresis. No fever, no chills, no fatigue HEENT: No sore throat, no earache, no congestion, no neck pain. Cardiac: Positive chest pain. No palpitations. Lungs: No shortness of breath, no cough. GI: Positive abdominal pain. Positive nausea. Positive dark stool. No vomiting. no diarrhea, no constipation : No flank pain. No dysuria, frequency, or urgency. Musculoskeletal: No joint pain. no joint swelling, no extremity edema. Skin: No rash, no itching. Neuro: Positive numbness sensation of the upper and lower extremities. No headache, dizziness, or weakness PHYSICAL EXAM: General: Awake, alert and oriented. No acute distress. Skin: Skin in warm, dry and intact. Appropriate color for ethnicity. HEENT: The head is normocephalic and atraumatic. Conjunctivae are clear without exudates or hemorrhage. Sclera is non-icteric. EOM are intact. No signs of nystagmus. Eyelids are normal in appearance without swelling or lesions. Oral mucosa is pink and moist Neck: The neck is supple with painful range of motion. No JVD. Cardiac: Heart rate and rhythm are normal. No murmurs, gallops, or rubs are auscultated. Respiratory: No signs of respiratory distress. Lung sounds are clear in all lobes bilaterally without rales, rhonchi, or wheezes. Abdominal: Positive RUQ abdominal tenderness. Abdomen is soft, without distention, guarding or rigidity. Bowel sounds are present and normoactive in all four quadrants. Extremities: Upper and lower extremities are atraumatic in appearance without deformity or edema. Neurological: The patient is awake, alert and oriented to person, place, and time with normal speech. Speech is clear. There is no facial asymmetry. Psychiatric: Appropriate mood and affect. Good judgement and insight. Chief Complaint: Abdominal Pain Time Seen by MD: 18:40 Primary Care Provider: RAYSHAWN Peña Notes: Medications, Allergies Allergies: Coded Allergies: NO KNOWN ALLERGIES (Unverified , 05/13/17) Home Meds Active Scripts Oseltamivir Phosphate (Tamiflu) 75 Mg Cap, 1 CAP PO BID, #10 CAP Prov:JANA VILLANUEVA DO 10/18/24 Zinc Sulfate (Zinc) 220 Mg Cap, 220 MG PO DAILY, #15 CAP Prov:YOANDY SOLIZ MD 04/16/24 Cholecalciferol (Vitamin D3 Super Strength) 2,000 Unit Cap, 2000 UNIT PO DAILY, #15 CAP Prov:YOANDY SOLIZ MD 04/16/24 Ascorbic Acid (VITAMIN C TABLET) 500 Mg Tb, 1 TAB PO DAILY, #30 TAB Prov:YOANDY SOLIZ MD 04/16/24 Azithromycin (Zithromax Z-Willie) 250 Mg Tab, 250 MG PO DAILY, #6 TAB Prov:YOANDY SOLIZ MD 04/16/24 Reported Medications Ibuprofen Micronized (Ibuprofen) 800 Mg Tab, 800 MG PO TID, TAB 04/15/24 Information Source: Patient Mode of Arrival: Ambulatory Duration: Intermittent Prehospital treatment: None Severity: Moderate Pain Location: RUQ Associated sign and symptoms: Nausea, Abdominal Pain, Other (dark stool, di aphoresis, numbness sensation ) Past Medical History PAST MEDICAL HISTORY: DM Surgical History: Cholecystectomy 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 Was a procedure done?: No GI differential Dx Differential Diagnosis: Constipation, Gastritis/PUD, Gastroenteritis, Inflammatory BD, Urolithiasis, Dehydration, Diabetes/ DKA, Electrolyte Imbalance, Food Poisoning, Bacterial, Parasitic, Viral, Kidney Stone, Other Other Differential Diagnosis Differential diagnoses considered include: Abdominal aortic aneurysm, ID, esophageal rupture, intestinal obstruction, mesenteric ischemia, perforated viscus or solid organ rupture, CHF with hepatomegaly, pneumonia, abscess, appendicitis, biliary disease, diverticulitis, gastritis, gastroenteritis, hepatitis, hernia, inflammatory bowel disease, pancreatitis, peptic ulcer disease, urinary tract infection, ureteral colic, constipation, GERD, irritable syndrome, abdominal wall pain, nonspecific abdominal pain, herpes zoster, nephrolithiasis. Also ruptured ectopic , ovarian torsion/cyst, tubo- ovarian abscess, PID, endometriosis, mittleschmerz. X-Ray, Labs, Meds, VS Vital Signs Date Time Temp Pulse Resp B/P (MAP) Pulse Ox O2 Delivery O2 Flow Rate FiO2 05/09/25 18:48 90 05/09/25 18:32 90 05/09/25 18:20 97.8 97 16 120/80 95 97.8 Lab Test 05/09/25 18:58 05/09/25 18:49 Range/Units White Blood Count 11.3 H 4.4-10.8 10^3/uL Red Blood Count 4.78 4.0-5.20 10^6/uL Hemoglobin 13.6 12.2-16.2 g/dL Hematocrit 40.0 36.0-46.0 % Mean Corpuscular Volume 83.6 80.0-100.0 fL Mean Corpuscular Hemoglobin 28.4 28.0-32.0 pg Mean Corpuscular Hemoglobin Concent 33.9 32.0-36.0 g/dL Red Cell Distribution Width 16.6 H 11.8-14.3 % Platelet Count 472 H 140-450 10^3/uL Mean Platelet Volume 7.2 6.9-10.8 fL Neutrophils (%) (Auto) 59.1 37.0-80.0 % Lymphocytes (%) (Auto) 29.5 10.0-50.0 % Monocytes (%) (Auto) 7.1 0.0-12.0 % Eosinophils (%) (Auto) 3.1 0.0-7.0 % Basophils (%) (Auto) 1.2 0.0-2.0 % Neutrophils # (Auto) 6.7 1.6-8.6 10 ^3/uL Lymphocytes # (Auto) 3.3 0.4-5.4 10 ^3/uL Monocytes # (Auto) 0.8 0-1.3 10 ^3/uL Eosinophils # (Auto) 0.4 0-0.8 10 ^3/uL Basophils # (Auto) 0.1 0-0.2 10 ^3/uL Nucleated Red Blood Cells 0.1 % Sodium Level 138 136-145 mmol/L Potassium Level 4.1 3.5-5.1 mmol/L Chloride Level 103 98-107 mmol/L Carbon Dioxide Level 27 20-31 mmol/L Anion Gap 8 5-15 Blood Urea Nitrogen 10 9-23 mg/dL Creatinine 0.79 0.550-1.02 mg/dL Glomerular Filtration Rate Calc 92 >90 mL/min BUN/Creatinine Ratio 12.7 10.0-20.0 Serum Glucose 87 74-106 mg/dL Calcium Level 9.1 8.7-10.4 mg/dL Total Bilirubin 0.2 0.2-1.0 mg/dL Aspartate Amino Transferase (AST) 19 13-40 U/L Alanine Aminotransferase (ALT) 16 7-40 U/L Alkaline Phosphatase 135 H 46-116 U/L Troponin I High Sensitivity < 3 L </=34 ng/L Total Protein 7.5 5.7-8.2 g/dL Albumin 4.4 3.2-4.8 g/dL Lipase 51 12-53 U/L Urine Color Yellow Yellow Urine Clarity Clear Clear Urine pH 5.5 5.0-9.0 Urine Specific [place] 1.030 1.001-1.035 Urine Protein Negative Negative Urine Ketones Trace Negative Urine Blood Negative Negative /uL Urine Nitrite Negative Negative Urine Bilirubin Negative Negative Urine Urobilinogen Normal Negative mg/dL Urine Leukocyte Esterase Negative Negative /uL Urine RBC 1 0 - 4 /hpf Urine Microscopic WBC 2 0-5 /HPF Urine Squamous Epithelial Cells Few <5 /hpf Urine Bacteria Few H None Seen /hpf Urine Mucus Few None Seen Urine Glucose Normal Normal mg/dL PATIENT: AKBAR DANIELSCT: [id number]: [id number] : 1975 LOC: ER ROOM / BED: / AGE / SEX: 49 / F ADM STATUS: REG ER SERVICE 184 ORDERING PHYSICIAN: JONAH SALINAS MD PROCEDURE(s): CXR1 - CHEST XRAY 1 VIEW REASON: Chest pain ORDER NUMBER(s): [id number], ACCESSION NUMBER(s): [id number] CHEST RADIOGRAPH Indication: Chest pain Technique: Single frontal view of the chest was obtained Comparison: XY CHEST PORTABLE on DOS: 10/18/24, XY CHEST PORTABLE on DOS: 04/15/24 FINDINGS: Lines and Tubes: None Lungs: No focal consolidation. Pleura: No effusion. No pneumothorax. Cardiomediastinal contours: Unremarkable Bones: No acute osseous abnormality. IMPRESSION: No acute cardiopulmonary disease. ATED BY: GUERITA COATES DO DICTATED DATE/TIME: 05/09/251936 SIGNED BY: GUERITA COATES DO SIGNED DATE/TIME: 05/09/251936 Images Reviewed?: Images reviewed and evaluated by me Time of 1ST Reevaluation: 19:10 Reevaluation 1ST: Unchanged Patient Education/Counseling: Need For Follow Up Family Education/Counseling: No Family Present Medical Screening: No EMC Exist At This Time SEPSIS Sepsis Screen Date sepsis recognized/suspect: May 09, 2025 Time Sepsis recognized/suspect: 1819 Recent Procedure: No On Antibiotic Therapy: No Respiratory Rate >20: No Heart Rate >90: Yes Temp<36 C (96.8 F) or >38.3 C: No SBP <90 or MAP <65 mmHG: No New Acute Mental Status Change: No Is the patient on CPAP, BIPAP,: No Physician Orders Chest Xray 1 View (05/09/25 18:49) Vital Signs Date Time Temp Pulse Resp B/P (MAP) Pulse Ox O2 Delivery O2 Flow Rate FiO2 05/09/25 18:48 90 05/09/25 18:32 90 05/09/25 18:20 97.8 97 16 120/80 95 97.8 Laboratory Tests Test 05/09/25 18:58 White Blood Count 11.3 10^3/uL (4.4-10.8) H Departure 1 Departure Time of Disposition: 20:08 Impression: Primary Impression: Chest pain Additional Impression: Right upper quadrant abdominal pain Disposition: HOME / SELF CARE / HOMELESS Condition: Stable Additional Instructions: ED DISCHARGE INSTRUCTIONS Instructions: Please read all instructions provided in this packet carefully. Although you have been discharged from the Emergency Department, this does not mean that you have a "clean bill of health". No definitive diagnosis for your symptoms has been made today. It is possible that you are in the process of developing a serious illness. This is why you must return to the ED without fail if any new or worsening symptoms (especially if your symptoms include chest pain, trouble breathing, abdominal pain, fever, headache, confusion, trouble seeing, or trouble walking) It is also very important that you see a primary care provider (PCP) within the next 3-5 days to follow up. If you are unable to get an appointment, return to the ED for re-evaluation. Abdominal Pain: Care Instructions Overview Abdominal pain has many possible causes. Some aren't serious and get better on their own in a few days. Others need more testing and treatment. If your pain continues or gets worse, you need to be rechecked and may need more tests to find out what is wrong. You may need surgery to correct the problem. Don't ignore new symptoms, such as fever, nausea and vomiting, urination problems, pain that gets worse, and dizziness. These may be signs of a more serious problem. If you are not getting better, you may need more tests or treatment. The doctor has checked you carefully, but problems can develop later. If you notice any problems or new symptoms, get medical treatment right away. Follow-up care is a murphy part of your treatment and safety. Be sure to make and go to all appointments, and call your doctor if you are having problems. It's also a good idea to know your test results and keep a list of the medicines you take. How can you care for yourself at home? Rest until you feel better. To prevent dehydration, drink plenty of fluids. Choose water and other clear liquids until you feel better. If you have kidney, heart, or liver disease and have to limit fluids, talk with your doctor before you increase the amount of fluids you drink. When you feel like eating, start with small amounts. Do not have alcohol, caffeine, or spicy, hot, or high-fat foods for a day or two. Avoid anti-inflammatory medicines such as aspirin, ibuprofen (Advil, Motrin), and naproxen (Aleve). These can cause stomach upset. Talk to your doctor if you take daily aspirin for another health problem. When should you call for help? Call 911 anytime you think you may need emergency care. For example, call if: You passed out (lost consciousness). You pass maroon or very bloody stools. You vomit blood or what looks like coffee grounds. You have severe belly pain. Call your doctor now or seek immediate medical care if: Your pain gets worse, especially if it becomes focused in one area of your belly. You have a new or higher fever. Your stools are black and look like tar, or they have streaks of blood. You have unexpected vaginal bleeding. You have symptoms of a urinary tract infection. These may include: Pain when you urinate. Urinating more often than usual. Blood in your urine. You are dizzy or lightheaded, or you feel like you may faint. Watch closely for changes in your health, and be sure to contact your doctor if: You are not getting better as expected. Credits for Abdominal Pain: Care Instructions Current as of: June 10, 2023 Author: [employer], [employer] Staff Clinical Review Board [employer] education is reviewed by a team that includes physicians, nurses, advanced practitioners, registered dieticians, and other healthcare professionals. Discharged With: Self Comments MDM: 49-year-old female presented with chest pain and right upper quadrant abdominal pain ongoing intermittently for several days. She denied chest pain or abdominal pain ED observation. No peritoneal signs on abdominal exam. No evidence of acute abdomen at this time. patient is well appearing. Labs show no leukocytosis. There is mild elevation of alk-phos noted. Emergent Abdominal Imaging not warranted at this time. Patient is afebrile. Patient is not hypotensive. Low suspicion for acute hepatobiliary disease (including acute cholecystitis, acute pancreatitis, PUD (including perforation), acute infectious process (pneumonia, hepatitis, pyelonephritis), acute appendicitis, vascular catastrophe, bowel obstructions, viscous perforation. Presentation not consistent with other acute, emergent causes of abdominal pain at this time. EKG negative for signs of ischemia. High sensitivity troponin negative. CXR shows no acute process. Presentation not suggestive of acute coronary syndrome, pulmonary embolism or aortic dissection. Patient improved at time of discharge. Patient has not been hypoxic, in respiratory distress or dyspneic during the ED observation. Patient able to ambulate without difficulty. Patient felt stable for discharge to follow up with PCP promptly. Patient advised to return to the ED with any new, worsening or concerning symptoms or inability to follow up with PCP. - I reviewed the following notes from the pt's past medical encounters: N/A The following tests were ordered, and results were reviewed by me: (See diagnostic results section) The following test were independently interpreted by me: EKG Additional information was gathered from interviewing the following independent historians: N/A I reviewed and agreed with the following test results read by other providers: Chest x-ray I discussed treatments and results with patient Decision regarding hospitalization or escalation of hospital level of care: Risks and benefits of admission for further treatment of patient's condition was considered however due to patient's stable condition patient will be discharged to follow up closely or return to care for worsening of condition or inability to follow up. Critical Care Note Critical Care Time?: No Stability Stability form required: No Heart Score Heart Score: Heart Score Response (Comments) Value History Slightly Suspicious 0 EKG Normal 0 Age 45-64 1 Risk Factors No known risk factors 0 Troponin Normal limit 0 Total 1 I personally scribed for JONAH SALINAS MD ([email or web address]) on 05/09/25 at 18:48. Electronically submitted by Norma Hilliard ([employer]). I personally scribed for JONAH SALINAS MD ([email or web address]) on 05/09/25 at 18:51. Electronically submitted by Norma Hilliard ([employer]). I personally scribed for JONAH SALINAS MD ([employer]) on 05/09/25 at 19:27. Electronically submitted by Norma Hilliard ([employer]). JONAH SALINAS MD May 09, 2025 18:48
[2025-05-09 19:17] LABS: Hematocrit 40.0 % (36.0-46.0); Hemoglobin 13.6 g/dL (12.2-16.2); Mean Corpuscular Hemoglobin 28.4 pg (28.0-32.0); Mean Corpuscular Volume 83.6 fL (80.0-100.0); Nucleated Red Blood Cells % 0.1 %
[2025-05-09 19:23] LABS: Alanine Aminotransferase 16 U/L (7-40); Anion Gap 8 (5-15); BUN/Creatinine Ratio 12.7 (10.0-20.0); Blood Urea Nitrogen 10 mg/dL (9-23); Calcium 9.1 mg/dL (8.7-10.4); Carbon Dioxide 27 mmol/L (20-31); Chloride 103 mmol/L (98-107); Glucose 87 mg/dL (74-106); Lipase 51 U/L (12-53); Potassium 4.1 mmol/L (3.5-5.1); Sodium 138 mmol/L (136-145); Total Protein 7.5 g/dL (5.7-8.2)
[2025-05-09 19:24] LABS: Albumin 4.4 g/dL (3.2-4.8)
[2025-05-09 19:27] LABS: Alkaline Phosphatase 135 U/L (46-116); Bilirubin, Total 0.2 mg/dL (0.2-1.0)
[2025-05-09 19:35] LABS: Urine Protein, UAD Negative (Negative)
--- NOTE | 2025-05-09 19:40 | DVH ---
CHEST RADIOGRAPH Indication: Chest pain Technique: Single frontal view of the chest was obtained Comparison: XY CHEST PORTABLE on DOS: 10/18/24, XY CHEST PORTABLE on DOS: 04/15/24 FINDINGS: Lines and Tubes: None Lungs: No focal consolidation. Pleura: No effusion. No pneumothorax. Cardiomediastinal contours: Unremarkable Bones: No acute osseous abnormality. IMPRESSION: No acute cardiopulmonary disease.
[2025-05-09 20:40] VITALS: BP 110/78; PULSE 74; RESP 18; TEMP 98.2; O2SAT 96
== END 2025-05-09 20:12 | disposition home or self-care (01) ==
LOC: ER 18:18
DX: R07.89 Other chest pain (principal); R10.11 Right upper quadrant pain; F17.210 Nicotine dependence, cigarettes, uncomplicated; E11.9 Type 2 diabetes mellitus without complications; Z90.49 Acquired absence of other specified parts of digestive tract
CPT/HCPCS: 36415; 71045; 80053; 81001; 83690; 84484; 85025; 93005